=== PATIENT | male | born 1980 | race Caucasian/White ===

== ENCOUNTER 2020-08-19 11:14 | Outpatient (REF) | payer OTHER, SELFPAY ==
[2020-08-26 10:47] LABS: Testosterone, Free 76.6 pg/mL (35.0-155.0); Testosterone, Total 414 ng/dL (250-1100)
== END 2020-08-19 11:15 | disposition home or self-care (01) ==
LOC: HO.MANLDS 11:14
PROVIDERS: PCP Internal Medicine; Visit Provider Internal Medicine
DX: R79.89 Other specified abnormal findings of blood chemistry (principal)
CPT/HCPCS: 84402; 84403

== ENCOUNTER 2021-01-12 19:30 | Emergency (ER) | payer OTHER, SELFPAY ==
[2021-01-12 20:08] VITALS: BP 141/101; PULSE 106; RESP 17; TEMP 37.6; O2SAT 96; BMI 31.4
--- NOTE | 2021-01-12 20:26 | ED_ITS ---
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, the pants were not rip tip but there is a bruise on the right lower leg Related Information Allergies Allergy/AdvReac Type Severity Reaction Status Date / Time azithromycin [From ZITHROMAX] Allergy Mild HIVES Verified 01/12/21 20:37 Review of Systems Review of Systems: Positive for bruising to right lower leg from a bite marga No dizziness no weakness no laceration no difficulty walking or ambulating no numbness or weakness no joint pains no other injury PMFSH Past Medical History Source: nursing notes reviewed Medical History (Updated 01/12/21 @ 21:29 by JANIYA Kruger) Graves disease Hypothyroid Social History Social History Advance Directives: No Physical Exam Vital Signs: Vital Signs: Last Vital Signs Temp 99.6 F 01/12/21 20:08 Pulse 106 H 01/12/21 20:08 Resp 17 01/12/21 20:08 BP 141/101 H 01/12/21 20:08 Pulse Ox 96 01/12/21 20:08 Body Mass Index 31.4 General appearance comfortably a relaxed no acute distress Head normocephalic atraumatic Neck is supple Respiratory no distress Extremities full range of motion x4 Right leg there is a superficial contusion, no skin penetration, pants were intact, very unlikely of any saliva or blood penetrating is skin Neuro no motor or sensory deficit Course Course Course Narrative: Case signed out to physician assistant Blum pending HIV results of source patient christopher in room 12 Patient is advised no need for prophylaxis as no body fluid contact with his skin but depending on source patient results decision will be up to the patient MDM - Medical Clearance Lab Data Result diagrams: 01/12/21 20:36 01/12/21 20:36 Labs: Lab Results 01/12/21 01/12/21 Range/Units 20:36 20:36 WBC 8.1 (4.8-10.8) X10*3/uL RBC 5.25 (4.60-5.80) X10*6/uL Hgb 15.7 (14.0-18.0) g/dl Hct 45.8 (42-52) % MCV 87.2 (80-98) fL MCH 29.9 (27.0-33.0) pg MCHC 34.3 (31.0-36.0) g/dl RDW 13.2 (11.0-16.0) % Plt Count 287 (160-400) X10*3/uL MPV 9.7 (9.4-12.4) fL Immature Gran % (Auto) 0.5 H (0.0-0.4) % Neut % (Auto) 58.3 (45-73) % Lymph % (Auto) 28.8 (20-40) % [place] % (Auto) 8.8 (2-11) % Eos % (Auto) 3.2 (0-4) % Baso % (Auto) 0.4 (0-2) % Lymph # (Auto) 2.3 (1.2-4.9) X10*3/uL [place] # (Auto) 0.7 (0.1-1.2) X10*3/uL Eos # (Auto) 0.3 (0.0-0.4) X10*3/uL Baso # (Auto) 0.0 (0.0-0.2) X10*3/uL Abs Immat Gran (auto) 0.04 H (0.00-0.03) X10*3/uL Absolute Neuts (auto) 4.7 (2.0-8.3) X10*3/uL Absolute Nucleated RBC 0.000 (0.0-0.012) X10*3/uL Nucleated RBC % (auto) 0.0 (0.0-0.2) /100WBC Sodium 141 (135-145) mmol/L Potassium 4.0 (3.3-5.1) mmol/L Chloride 107 (96-108) mmol/L Carbon Dioxide 24 (22-29) mmol/L Anion Gap 14 (12-20) BUN 17 H (9-16) mg/dL Creatinine 1.12 (0.5-1.4) mg/dL Estim Creat Clear Calc 92.2 Estimated GFR > 60 Random Glucose 80 (60-115) mg/dL Calcium 9.6 (8.4-10.2) mg/dL Total Bilirubin 0.9 (0.0-1.0) mg/dL Direct Bilirubin 0.3 (0.0-0.5) mg/dL AST 20 (5-37) U/L ALT 41 H (0-40) U/L Alkaline Phosphatase 83 (39-117) U/L Total Protein 8.5 H (6.5-8.0) g/dL Albumin 5.1 H (3.5-5.0) g/dL Amylase 65 (28-100) U/L Lipase 29 (8-78) U/L Discharge Plan Discharge Clinical Impression: Contusion of leg, right Qualifiers: Encounter type: initial encounter Qualified Code(s): S80.11XA - Contusion of right lower leg, initial encounter Patient Disposition: Home, Self-Care Additional Instructions: Source patient was negative for HIV, follow with work connection for other testing results from the source patient and results of your lab tests done today
--- NOTE | 2021-01-12 20:39 | PC.NURSE ---
TETANUS WAS GIVEN 2018.
[2021-01-12 20:40] LABS: MANUAL DIFF FLAG NO
[2021-01-12 20:42] LABS: Basophils Percent Auto 0.4 % (0-2); Eosinophils Absolute Auto 0.3 X10*3/uL (0.0-0.4); Eosinophils Percent Auto 3.2 % (0-4); Hematocrit 45.8 % (42-52); Hemoglobin 15.7 g/dl (14.0-18.0); Imm Gran Abs Auto 0.04 X10*3/uL (0.00-0.03); Imm Gran Pct Auto 0.5 % (0.0-0.4); Lymphocytes Absolute Auto 2.3 X10*3/uL (1.2-4.9); Lymphocytes Percent Auto 28.8 % (20-40); Mean Corpuscular HGB Conc 34.3 g/dl (31.0-36.0); Mean Corpuscular Hemoglobin 29.9 pg (27.0-33.0); Mean Corpuscular Volume 87.2 fL (80-98); Mean Platelet Volume 9.7 fL (9.4-12.4); Monocytes Absolute Auto 0.7 X10*3/uL (0.1-1.2); Monocytes Percent Auto 8.8 % (2-11); Neutrophils Absolute Auto 4.7 X10*3/uL (2.0-8.3); Neutrophils Percent Auto 58.3 % (45-73); Platelet Count 287 X10*3/uL (160-400); Red Blood Count 5.25 X10*6/uL (4.60-5.80); Red Cell Distribution Width 13.2 % (11.0-16.0); White Blood Count 8.1 X10*3/uL (4.8-10.8)
[2021-01-12 21:15] LABS: Alanine Aminotransferase 41 U/L (0-40); Albumin Level 5.1 g/dL (3.5-5.0); Alkaline Phosphatase 83 U/L (39-117); Amylase 65 U/L (28-100); Anion Gap 14 (12-20); Aspartate Amino Transferase 20 U/L (5-37); Bilirubin Direct 0.3 mg/dL (0.0-0.5); Bilirubin Total 0.9 mg/dL (0.0-1.0); Blood Urea Nitrogen 17 mg/dL (9-16); Calcium 9.6 mg/dL (8.4-10.2); Carbon Dioxide 24 mmol/L (22-29); Chloride 107 mmol/L (96-108); Creatinine Clr Calc Pharmacy 92.2; Estimated Glomerular Filt Rate > 60; Glucose Random 80 mg/dL (60-115); Lipase 29 U/L (8-78); Sodium 141 mmol/L (135-145); Total Protein 8.5 g/dL (6.5-8.0)
[2021-01-12 21:47] LABS: HIV AB/AG Nonreactive (Nonreactive); HIV Num 1 0.06 S/CO (0.00-0.99)
[2021-01-14 08:56] LABS: HBS Num1 25.09 mIU/mL (0-7.99); HBc Num1 0.07 S/CO (0.00-0.79); Hepatitis B Core Antibody Nonreactive (Nonreactive); ~Hepatitis B Surface Antibody REACTIVE (Nonreactive)
[2021-01-14 09:24] LABS: HBsAGNum1 0.17 S/CO (0.00-0.99); Hepatitis B Surface Antigen Negative (Negative)
== END 2021-01-12 22:42 | disposition home or self-care (01) ==
PROVIDERS: Physician Assistant Medical; Emergency Provider Emergency Medicine Emergency Medical Services; PCP Internal Medicine
DX: S80.11XA Contusion of right lower leg, initial encounter (principal); Y04.1XXA Assault by human bite, initial encounter; Y93.89 Activity, other specified; Y92.480 Sidewalk as the place of occurrence of the external cause; Y99.0 Civilian activity done for income or pay
CPT/HCPCS: 36415; 80048; 80076; 82150; 83690; 85025; 86704; 86706; 87340; 87389; 99284

== ENCOUNTER → 2021-01-13 10:46 | Outpatient (BNVA) | payer OTHER, SELFPAY | PROVIDERS: PCP Internal Medicine; Visit Provider Internal Medicine | DX: S80.271A Other superficial bite of right knee, initial encounter (principal); W50.3XXA Accidental bite by another person, initial encounter | CPT/HCPCS: 99203 ==

== ENCOUNTER 2021-06-09 12:13 | Outpatient (REF) | payer OTHER, SELFPAY ==
[2021-06-09 17:58] LABS: Hematocrit 47.5 % (42-52); Hemoglobin 15.7 g/dl (14.0-18.0); Mean Corpuscular HGB Conc 33.1 g/dl (31.0-36.0); Mean Corpuscular Hemoglobin 29.7 pg (27.0-33.0); Mean Corpuscular Volume 89.8 fL (80-98); Mean Platelet Volume 9.7 fL (9.4-12.4); Platelet Count 222 X10*3/uL (160-400); Red Blood Count 5.29 X10*6/uL (4.60-5.80); Red Cell Distribution Width 14.1 % (11.0-16.0); White Blood Count 6.1 X10*3/uL (4.8-10.8)
[2021-06-09 18:20] LABS: Alanine Aminotransferase 44 U/L (0-40); Albumin Level 4.6 g/dL (3.5-5.0); Alkaline Phosphatase 72 U/L (39-117); Anion Gap 16 (12-20); Aspartate Amino Transferase 23 U/L (5-37); Bilirubin Total 1.3 mg/dL (0.0-1.0); Blood Urea Nitrogen 18 mg/dL (9-16); Calcium 9.6 mg/dL (8.4-10.2); Carbon Dioxide 23 mmol/L (22-29); Chloride 106 mmol/L (96-108); Estimated Glomerular Filt Rate > 60; Glucose Fasting 79 mg/dL (60-99); Potassium 3.9 mmol/L (3.3-5.1); Sodium 141 mmol/L (135-145); Total Protein 7.8 g/dL (6.5-8.0)
[2021-06-09 18:42] LABS: Free T4 (Free Thyroxine) 1.54 ng/dL (0.71-1.85); Thyroid Stimulating Hormone 1.07 uIU/mL (0.32-4.0)
[2021-06-10 21:45] LABS: Triiodothyronine T3 Free 2.8 pg/mL (2.3-4.2)
[2021-06-16 14:32] LABS: Testosterone, Total 890 ng/dL (250-1100)
== END 2021-06-09 12:14 | disposition home or self-care (01) ==
LOC: HO.MANLDS 12:13
PROVIDERS: PCP Internal Medicine; Visit Provider Internal Medicine
DX: R79.89 Other specified abnormal findings of blood chemistry (principal); E05.00 Thyrotoxicosis with diffuse goiter without thyrotoxic crisis or storm; R53.83 Other fatigue
CPT/HCPCS: 36415; 80053; 84402; 84403; 84439; 84443; 84481; 85027

== ENCOUNTER 2022-01-08 13:45 | Outpatient (REF) | payer OTHER, SELFPAY ==
[2022-01-08 14:17] LABS: OBS Int Ctl Valid YES; OBS1 POSITIVE (NEGATIVE); OBS2 NEGATIVE (NEGATIVE); OBS3 NEGATIVE (NEGATIVE)
== END 2022-01-08 13:46 | disposition home or self-care (01) ==
LOC: HO.LNP 13:45
PROVIDERS: Visit Provider Internal Medicine
DX: K21.01 Gastro-esophageal reflux disease with esophagitis, with bleeding (principal)
CPT/HCPCS: 82270

== ENCOUNTER 2022-04-16 10:05 | Outpatient (REF) | payer OTHER, SELFPAY ==
[2022-04-16 10:57] LABS: MANUAL DIFF FLAG NO
[2022-04-16 10:59] LABS: Basophils Percent Auto 0.6 % (0-2); Eosinophils Absolute Auto 0.2 X10*3/uL (0.0-0.4); Eosinophils Percent Auto 3.5 % (0-4); Hematocrit 44.7 % (42.0-52.0); Hemoglobin 15.1 g/dl (14.0-18.0); Imm Gran Abs Auto 0.05 X10*3/uL (0.00-0.03); Imm Gran Pct Auto 0.8 % (0.0-0.4); Lymphocytes Absolute Auto 2.1 X10*3/uL (1.2-4.9); Lymphocytes Percent Auto 31.8 % (20-40); Mean Corpuscular HGB Conc 33.8 g/dl (31.0-36.0); Mean Corpuscular Hemoglobin 29.3 pg (27.0-33.0); Mean Corpuscular Volume 86.6 fL (80.0-98.0); Mean Platelet Volume 9.6 fL (9.4-12.4); Monocytes Absolute Auto 0.6 X10*3/uL (0.1-1.2); Monocytes Percent Auto 8.6 % (2-11); Neutrophils Absolute Auto 3.5 x10*3/uL (2.0-8.3); Neutrophils Percent Auto 54.7 % (45-73); Platelet Count 238 X10*3/uL (160-400); Red Blood Count 5.16 X10*6/uL (4.60-5.80); Red Cell Distribution Width 13.5 % (11.0-16.0); White Blood Count 6.5 X10*3/uL (4.8-10.8)
[2022-04-16 12:16] LABS: Alanine Aminotransferase 37 U/L (0-40); Albumin Level 4.6 g/dL (3.5-5.0); Alkaline Phosphatase 77 U/L (39-117); Anion Gap 12 (12-20); Aspartate Amino Transferase 19 U/L (5-37); Blood Urea Nitrogen 18 mg/dL (9-16); Calcium 9.6 mg/dL (8.4-10.2); Carbon Dioxide 27 mmol/L (22-29); Chloride 104 mmol/L (96-108); Cholesterol 253 mg/dL; Estimated Glomerular Filt Rate > 60; Glucose Random 96 mg/dL (60-115); HDL Cholesterol 52 mg/dL; LDL Cholesterol Calculated 177 mg/dl; Potassium 4.8 mmol/L (3.3-5.1); Sodium 138 mmol/L (135-145); Total Protein 7.7 g/dL (6.5-8.0); Triglycerides 122 mg/dL
[2022-04-16 12:18] LABS: Thyroid Stimulating Hormone 0.74 uIU/mL (0.32-4.0); Vitamin D 25-OH Total 30.1 ng/mL (>30)
== END 2022-04-16 10:06 | disposition home or self-care (01) ==
LOC: HO.MANLDS 10:05
PROVIDERS: Visit Provider Internal Medicine
DX: Z00.00 Encounter for general adult medical examination without abnormal findings (principal)
CPT/HCPCS: 36415; 80053; 80061; 82306; 84443; 85025

== ENCOUNTER 2022-10-01 10:56 | Outpatient (REF) | payer OTHER, SELFPAY ==
[2022-10-01 14:08] LABS: MANUAL DIFF FLAG NO
[2022-10-01 14:28] LABS: Basophils Percent Auto 0.5 % (0-2); Eosinophils Absolute Auto 0.2 X10*3/uL (0.0-0.4); Eosinophils Percent Auto 3.1 % (0-4); Hematocrit 43.4 % (42.0-52.0); Hemoglobin 14.7 g/dl (14.0-18.0); Imm Gran Abs Auto 0.02 X10*3/uL (0.00-0.03); Imm Gran Pct Auto 0.4 % (0.0-0.4); Lymphocytes Absolute Auto 1.9 X10*3/uL (1.2-4.9); Lymphocytes Percent Auto 34.2 % (20-40); Mean Corpuscular HGB Conc 33.9 g/dl (31.0-36.0); Mean Corpuscular Hemoglobin 29.8 pg (27.0-33.0); Mean Platelet Volume 10.1 fL (9.4-12.4); Monocytes Absolute Auto 0.5 X10*3/uL (0.1-1.2); Monocytes Percent Auto 8.9 % (2-11); Neutrophils Absolute Auto 2.9 x10*3/uL (2.0-8.3); Neutrophils Percent Auto 52.9 % (45-73); Platelet Count 249 X10*3/uL (160-400); Red Blood Count 4.93 X10*6/uL (4.60-5.80); White Blood Count 5.5 X10*3/uL (4.8-10.8)
[2022-10-01 14:47] LABS: Estimated Average Glucose 100 mg/dL; Hemoglobin A1c % 5.1 %
[2022-10-01 15:08] LABS: Alanine Aminotransferase 35 U/L (0-40); Albumin Level 4.5 g/dL (3.5-5.0); Alkaline Phosphatase 67 U/L (39-117); Anion Gap 11 (12-20); Aspartate Amino Transferase 18 U/L (5-37); Bilirubin Total 1.5 mg/dL (0.0-1.0); Blood Urea Nitrogen 16 mg/dL (9-16); Calcium 9.5 mg/dL (8.4-10.2); Carbon Dioxide 27 mmol/L (22-29); Chloride 105 mmol/L (96-108); Cholesterol 206 mg/dL; Estimated Glomerular Filt Rate > 60; Glucose Fasting 90 mg/dL (60-99); HDL Cholesterol 48 mg/dL; LDL Cholesterol Calculated 142 mg/dl; Potassium 4.3 mmol/L (3.3-5.1); Sodium 139 mmol/L (135-145); Thyroid Stimulating Hormone 0.22 uIU/mL (0.32-4.0); Total Protein 7.3 g/dL (6.5-8.0); Triglycerides 83 mg/dL
[2022-10-08 14:17] LABS: Testosterone, Total 519 ng/dL (250-1100)
== END 2022-10-01 10:57 | disposition home or self-care (01) ==
LOC: HO.MANLDS 10:56
PROVIDERS: Visit Provider Internal Medicine
DX: E03.9 Hypothyroidism, unspecified (principal); R79.89 Other specified abnormal findings of blood chemistry; K21.01 Gastro-esophageal reflux disease with esophagitis, with bleeding; R73.01 Impaired fasting glucose
CPT/HCPCS: 36415; 80053; 80061; 83036; 84403; 84443; 85025

== ENCOUNTER 2023-02-16 10:36 | Outpatient (REF) | payer OTHER, SELFPAY ==
[2023-02-16 14:20] LABS: Estimated Average Glucose 103 mg/dL; Hemoglobin A1c % 5.2 %
[2023-02-16 15:11] LABS: Alanine Aminotransferase 28 U/L (0-40); Albumin Level 4.3 g/dL (3.5-5.0); Alkaline Phosphatase 74 U/L (39-117); Anion Gap 10 (12-20); Aspartate Amino Transferase 17 U/L (5-37); Bilirubin Total 1.4 mg/dL (0.0-1.0); Blood Urea Nitrogen 15 mg/dL (9-16); Calcium 9.2 mg/dL (8.4-10.2); Carbon Dioxide 27 mmol/L (22-29); Chloride 108 mmol/L (96-108); Cholesterol 208 mg/dL; Estimated Glomerular Filt Rate > 60; Glucose Random 83 mg/dL (60-115); HDL Cholesterol 52 mg/dL; LDL Cholesterol Calculated 142 mg/dl; Potassium 4.3 mmol/L (3.3-5.1); Sodium 141 mmol/L (135-145); Total Protein 7.1 g/dL (6.5-8.0); Triglycerides 74 mg/dL
[2023-02-16 15:26] LABS: Thyroid Stimulating Hormone 0.49 uIU/mL (0.32-4.0)
== END 2023-02-16 10:37 | disposition home or self-care (01) ==
LOC: HO.MANLDS 10:36
PROVIDERS: Visit Provider Internal Medicine
DX: E03.9 Hypothyroidism, unspecified (principal); E78.00 Pure hypercholesterolemia, unspecified; R73.01 Impaired fasting glucose
CPT/HCPCS: 36415; 80053; 80061; 83036; 84443

== ENCOUNTER 2023-11-08 12:06 | Outpatient (REF) | payer OTHER, SELFPAY ==
[2023-11-08 14:19] LABS: Estimated Average Glucose 103 mg/dL; Hemoglobin A1c % 5.2 % (<6.0)
[2023-11-08 15:09] LABS: Alanine Aminotransferase 47 U/L (0-40); Albumin Level 4.5 g/dL (3.5-5.0); Alkaline Phosphatase 72 U/L (39-117); Anion Gap 13 (12-20); Aspartate Amino Transferase 25 U/L (5-37); Bilirubin Total 1.2 mg/dL (0.0-1.0); Blood Urea Nitrogen 19 mg/dL (9-16); Calcium 9.5 mg/dL (8.4-10.2); Carbon Dioxide 28 mmol/L (22-29); Chloride 102 mmol/L (96-108); Cholesterol 225 mg/dL (<200); Estimated Glomerular Filt Rate > 60; Glucose Random 86 mg/dL (60-115); HDL Cholesterol 55 mg/dL (>40); LDL Cholesterol Calculated 150 mg/dL (<100); Potassium 3.7 mmol/L (3.3-5.1); Sodium 139 mmol/L (135-145); Total Protein 7.9 g/dL (6.5-8.0); Triglycerides 102 mg/dL (<150)
[2023-11-13 16:18] LABS: Testosterone, Total 584 ng/dL (250-1100)
== END 2023-11-08 12:07 | disposition home or self-care (01) ==
LOC: HO.MANLDS 12:06
PROVIDERS: Visit Provider Internal Medicine
DX: R79.89 Other specified abnormal findings of blood chemistry (principal); E78.00 Pure hypercholesterolemia, unspecified; R73.01 Impaired fasting glucose
CPT/HCPCS: 36415; 80053; 80061; 83036; 84403

== ENCOUNTER 2024-11-06 08:40 | Outpatient (REF) | payer BC, SELFPAY ==
[2024-11-06 09:21] LABS: Estimated Average Glucose 108 mg/dL; Hemoglobin A1C 129.2615 umol/L; Hemoglobin A1c % 5.4 % (<6.0); Total Hemoglobin (HGBA1C) 3670.9797 umol/L
[2024-11-06 10:02] LABS: Alanine Aminotransferase 26 U/L (0-40); Albumin Level 4.5 g/dL (3.5-5.0); Alkaline Phosphatase 72 U/L (39-117); Anion Gap 9 (12-20); Aspartate Amino Transferase 18 U/L (5-37); Bilirubin Total 1.1 mg/dL (0.0-1.0); Blood Urea Nitrogen 18 mg/dL (9-16); Calcium 9.1 mg/dL (8.4-10.2); Carbon Dioxide 27 mmol/L (22-29); Chloride 107 mmol/L (96-108); Cholesterol 199 mg/dL (<200); Estimated Glomerular Filt Rate > 60; Glucose Random 91 mg/dL (60-115); HDL Cholesterol 38 mg/dL (>40); LDL Cholesterol Calculated 140 mg/dL (<100); Potassium 4.1 mmol/L (3.3-5.1); Sodium 139 mmol/L (135-145); Total Protein 7.9 g/dL (6.5-8.0); Triglycerides 107 mg/dL (<150)
[2024-11-06 10:19] LABS: Thyroid Stimulating Hormone 0.15 uIU/mL (0.32-4.0)
[2024-11-11 01:44] LABS: Testosterone, Total 438 ng/dL (250-1100)
== END 2024-11-06 08:41 | disposition home or self-care (01) ==
LOC: HO.LAB 08:40
PROVIDERS: PCP Internal Medicine; Visit Provider Internal Medicine
DX: E03.9 Hypothyroidism, unspecified (principal); R73.01 Impaired fasting glucose; R79.89 Other specified abnormal findings of blood chemistry; E78.00 Pure hypercholesterolemia, unspecified
CPT/HCPCS: 36415; 80053; 80061; 83036; 84403; 84443

== ENCOUNTER 2025-01-02 10:39 | Outpatient (REF) | payer BC, SELFPAY ==
[2025-01-02 14:03] LABS: Thyroid Stimulating Hormone 0.09 uIU/mL (0.32-4.0)
[2025-01-02 14:52] LABS: T4 Thyroxine 12.8 ug/dL (4.5-12.0)
== END 2025-01-02 10:40 | disposition home or self-care (01) ==
LOC: HO.MANLDS 10:39
PROVIDERS: Visit Provider Internal Medicine
DX: E03.9 Hypothyroidism, unspecified (principal)
CPT/HCPCS: 36415; 84436; 84443

== ENCOUNTER 2025-01-30 08:57 | Outpatient (REF) | payer BC, SELFPAY ==
--- OUTSIDE RECORDS SUMMARY | 2025-01-30 09:31 | XMS_ITS | Data Portability ---
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 MUST MEET 2 OUT OF 3 ELEMENTS: PROBLEMS, DATA OR RISK ELEMENT 1: PROBLEMS ADDRESSED 1 OR MORE CHRONIC ILLNESS WITH EXACERBATION OR 2 OR MORE STABLE CHRONIC ILLNESSES OR 1 UNDIAGNOSED NEW PROBLEM OR 1 ACUTE ILLNESS W/SYMPTOMS OR 1 ACUTE COMPLICATED INJURY ELEMENT 2: DATA MUST MEET 1 OF 3 CATEGORIES CATEGORY 1: REVIEW OF PRIOR EXTERNAL NOTES, REVIEW OF RESULTS, ORDERING OF EACH TEST, ASSESSMENT REQUIRING INDEPENDENT HISTORIAN OR CATEGORY 2: INDEPENDENT INTERPRETATION OF TESTS BY ANOTHER PHYSICIAN OR SPECIALIST OR CATEGORY 3: DISCUSSION OF MGT OR TEST INTERPRETATION W/EXTERNAL PHYSICIAN OR SPECIALIST ELEMENT 3: RISK RISK OF COMPLICATIONS AND/OR MORBIDITY OR MORTALITY OF PATIENT MANAGEMENT PROVIDER MUST THOROUGHLY DOCUMENT EACH ELEMENT THAT IS COVERED Not available 04/17/2024 12:29:48 01/02/2025 01/02/2025 Patient presente d for medication refill. Patient tolerating medication well at current dose without adverse effects. Refilled as below. Discussed plan with patient, who expressed understanding. Follow [place]. 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 MUST MEET 2 OUT OF 3 ELEMENTS: PROBLEMS, DATA OR RISK ELEMENT 1: PROBLEMS ADDRESSED 1 OR MORE CHRONIC ILLNESS WITH EXACERBATION OR 2 OR MORE STABLE CHRONIC ILLNESSES OR 1 UNDIAGNOSED NEW PROBLEM OR 1 ACUTE ILLNESS W/SYMPTOMS OR 1 ACUTE COMPLICATED INJURY ELEMENT 2: DATA MUST MEET 1 OF 3 CATEGORIES CATEGORY 1: REVIEW OF PRIOR EXTERNAL NOTES, REVIEW OF RESULTS, ORDERING OF EACH TEST, ASSESSMENT REQUIRING INDEPENDENT HISTORIAN OR CATEGORY 2: INDEPENDENT INTERPRETATION OF TESTS BY ANOTHER PHYSICIAN OR SPECIALIST OR CATEGORY 3: DISCUSSION OF MGT OR TEST INTERPRETATION W/EXTERNAL PHYSICIAN OR SPECIALIST ELEMENT 3: RISK RISK OF COMPLICATIONS AND/OR MORBIDITY OR MORTALITY OF PATIENT MANAGEMENT PROVIDER MUST THOROUGHLY DOCUMENT EACH ELEMENT THAT IS COVERED Not available 01/02/2025 10:18:04 01/28/2025 01/28/2025 [id number] [place] [address] (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 MUST MEET 2 OUT OF 3 ELEMENTS: PROBLEMS, DATA OR RISK ELEMENT 1: PROBLEMS ADDRESSED 1 OR MORE CHRONIC ILLNESS WITH EXACERBATION OR 2 OR MORE STABLE CHRONIC ILLNESSES OR 1 UNDIAGNOSED NEW PROBLEM OR 1 ACUTE ILLNESS W/SYMPTOMS OR 1 ACUTE COMPLICATED INJURY ELEMENT 2: DATA MUST MEET 1 OF 3 CATEGORIES CATEGORY 1: REVIEW OF PRIOR EXTERNAL NOTES, REVIEW OF RESULTS, ORDERING OF EACH TEST, ASSESSMENT REQUIRING INDEPENDENT HISTORIAN OR CATEGORY 2: INDEPENDENT INTERPRETATION OF TESTS BY ANOTHER PHYSICIAN OR SPECIALIST OR CATEGORY 3: DISCUSSION OF MGT OR TEST INTERPRETATION W/EXTERNAL PHYSICIAN OR SPECIALIST ELEMENT 3: RISK RISK OF COMPLICATIONS AND/OR MORBIDITY OR MORTALITY OF PATIENT MANAGEMENT PROVIDER MUST THOROUGHLY DOCUMENT EACH ELEMENT THAT IS COVERED Not available 01/28/2025 09:12:51 Plan of Treatment Reminders Order Date Submit Date Provider Last Modified By Organization Details Last Modified Time Details Appointments ANNUAL EXAM 2025 10:00A M DR QUIROZ Not available Not available Not available Lab TSH + free T4, serum 2024 025 [facility], [address] [place] [address], [id number], 01/28/2025 09:18:18 testoster one, free + total, serum 2024 025 [facility], [address] [place] [address], [address], 01/28/2025 09:18:18 TSH + free T4, serum 2024 025 [facility], [address] [place] [address], 47[address], 01/03/2025 12:57:48 lipid panel, blood 2024 025 [facility], [address] [place] [address], 06809, 11/13/2024 10:37:36 TSH, serum or plasma 2023 024 [facility], [address] [place] [address], [id number], 04/17/2024 12:32:34 hemoglobi n A1c, QN, blood 2023 024 [facility], [address] [place] [address], [id number], 04/17/2024 12:32:34 CMP, serum or plasma 2023 024 [facility], [address] [place] [address], [id number], 04/17/2024 12:32:34 testoster one, total, serum 2023 024 [facility], [address] [place] [address], 05459, 11/12/2024 11:29:25 lipid panel, serum 2023 024 [facility], [address] [place] [address], [address]16, 04/17/2024 12:32:34 HbA1c (hemoglob in A1c), blood 2023 024 [facility], [address] [place] [address], 680[address], 11/09/2023 11:36:28 CMP, serum or plasma 2023 024 [facility], [address] [place] [address], 27[address], 11/09/2023 11:36:28 testoster one, total, serum 2023 024 [facility], [address] [place] [address], [address], 2023 11:15:46 lipid panel, serum 2023 024 [facility], [address] [facility], [place], [address], 11/09/2023 11:36:28 Referral dermatolo gist referral 2024 025 bay Do MD, [address] [place] [id number], [id number], 01/30/2025 08:19:57 Procedures None recorded. Surgeries None recorded. Imaging None recorded. Medication Orders testoster one cypionate 200 mg/mL intramusc ular oil 2024 025 [id number], [address] [facility], [place], [address], 01/02/2025 10:28:08 Patient TargetsNo targets recorded. 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 Problems Name Problem SNOMED Code Status Onset Date Resolution Date Notes Provider Name and Address Organization Details Recorded Time Impaired fasting glycemia 263211539 Active 2018 Keke David null, [facility] 5 12:00:35 Acquired hypothyro idism 124283868 Active 2018 Kekemax tony, [facility] 5 12:00:35 Herpes simplex 93584826 Active 2018 Kekemax tony, [facility] 5 12:00:35 Graves' disease 819827114 Active 2018 Kekemax tony, [facility] 5 12:00:35 Patellar tendoniti s 97712266 Active 2018 Kekemax tony, [facility] 5 12:00:35 Spermatoc germaine 94389475 Active 2018 Kekemax tony, [facility] 5 12:00:35 Acne 81164587 [facility] 12:[facility]35 Fatigue 11193149 Active 2019 Sergio Quiroz, [address] [place] [address], [phone], [facility] 0 11:39:18 Hypotesto steronism 144448777470 4 Active 2019 Sergio Quiroz, [address] [place] [address], [address], [facility] 0 12:06:53 Gastroeso phageal reflux disease 566153614 Active 2021 Sergio Quiroz DO [address] [place] [address], [phone], [place] [facility] 2 10:41:56 Hyperchol esterolem ia 68576486 [facility] 2022 [facility] 14:10:32 Dysplasti c nevus of skin 101272822 Active 2024 Sergio Quiroz DO [address] [place] [address], [address], [facility] 5 13:33:29 Hypothyro idism 32652896 Active 2024 Sergio Apple Elodia, DO [address] [place], [address], [facility] 5 21:46:06 Dysfuncti on of eustachia n tube 12541154 Active 2024 Sergio QuirozDO [address] [place] [address], [address], [facility] 5 09:18:25 Dysfuncti on of eustachia n tube 04317445 Active 2024 Sergio Quiroz, [address] [place] [address], [address], [facility] 5 09:19:13 Problem Notes None recorded. Procedures Surgical History Date Name Laterality Status Provider Name and Address Organization Details Recorded Time Removal of hydrocele completed Leanneizabel Menjivar [facility] 05/01/2019 11:56:12 repair of inguinal hernia completed [facility] 05/01/2019 11:56:30 Imaging Results None recorded. Procedure Notes None recorded. Medical Equipment None Reported. Allergies Allergen ID Allergen Name Allergen Category Reaction Reaction Severity Criticality Documentation Date Start Date Code Code System Note Provider Name and Address Organization Details Recorded Time 3184 azithromy ata medicatio n Not available Not available Not available 05/01/2019 69415 [facility] 9 11:59:49 5626 pantopraz ole medicatio n nausea Not available Not available 01/11/2022 58277 RxNorm Priyanka Samm tony [facility] 2 16:49:43 Medications Name Sig Start Date Stop Date Status Note LastModified by Organization Details LastModified Time cyclobenzap rine 10 mg tablet 06/04 completed Not Available Not Available Not Available levothyroxi ne 175 mcg tablet 08/14 completed Not Available Not Available Not Available neomycin-po lymyxin-hyd rocort 3.5 mg/mL-10,00 0 unit/mL-1 % ear solution 08/14 completed Not Available Not Available Not Available levothyroxi ne 137 mcg tablet TAKE 1 TABLET BY MOUTH EVERY DAY FOR 30 DAYS active Not Available Not Available No t Available Synthroid 150 mcg tablet TAKE 1 TABLET DAILY 01/14 completed Not Available Not Available Not Available prednisone 20 mg tablet 06/04 completed Not Available Not Available Not Available valacyclovi r 500 mg tablet TAKE 1 TABLET DAILY active Not Available Not Available No t Available amoxicillin 875 mg tablet TAKE 1 TABLET BY MOUTH 2 TIMES A DAY UNTIL FINISH 01/02 completed Not Available Not Available Not Available pantoprazol e 40 mg tablet,travis yed release Take 1 tablet twice a day by oral route for 30 days. 01/11 completed Not Available Not Available Not Available lidocaine 5 % topical patch 06/04 completed Not Available Not Available Not Available omeprazole 20 mg capsule,del ayed release TAKE 1 CAPSULE BY MOUTH TWICE A DAY active Not Available Not Available No t Available testosteron e cypionate 200 mg/mL intramuscul ar oil INJECT 0.25 ML EVERY 2 WEEKS BY INTRAMUSC ULAR ROUTE SINGLE USE VIALS active Not Available Not Available No t Available amoxicillin 875 mg-potassiu m clavulanate 125 mg tablet 08/14 completed Not Available Not Available Not Available testosteron e 1 % (50 mg/5 gram) transdermal gel packet APPLY 1 PACKET TOPICALLY DAILY active Not Available Not Available No t Available oxycodone 5 mg tablet 08/14 completed Not Available Not Available Not Available Testim 50 mg/5 gram (1 %) transdermal gel apply topically every day 2023 active Not Available Not Available Not Avai lable multivitami n qd active Not Available Not Available Not Available Vitals Date Recorded Body height Body mass index (BMI) Body weight Heart rate Oxygen saturation Oxygen saturation in Arterial blood by Pulse oximetry Systolic blood pressure Diastolic blood pressure Provider Name and Address Organization Details Last Updated DateTime 4 168.28 cm 30.6 kg/m2 72151.1 4 g 84 /min 97 % 97 % 130 mm[Hg] 80 mm[Hg] Kiara [facility] 4 11:44:58 Date Recorded Body height Body mass index (BMI) Body weight Heart rate Oxygen saturation Oxygen saturation in Arterial blood by Pulse oximetry Systolic blood pressure Diastolic blood pressure Provider Name and Address Organization Details Last Updated DateTime 4 168.28 cm 30.4 kg/m2 67510.5 5 g 76 /min 97 % 97 % 120 mm[Hg] 68 mm[Hg] Kiara Georgemond [facility] 4 12:16:07 Date Recorded Body height Body mass index (BMI) Body weight Systolic blood pressure Diastolic blood pressure Provider Name and Address Organization Details Last Updated DateTime 11/13/2024 168.28 cm 30.4 kg/m2 26927.5 5 g 123 mm[Hg] 80 mm[Hg] Sergio Quiroz, DO [address] [place] [address], [place], [address], [facility] 5 10:04:28 Date Recorded Body height Body mass index (BMI) Body weight Heart rate Oxygen saturation Oxygen saturation in Arterial blood by Pulse oximetry Systolic blood pressure Diastolic blood pressure Provider Name and Address Organization Details Last Updated DateTime 5 168.28 cm 29.8 kg/m2 05408.1 8 g 78 /min 99 % 99 % 120 mm[Hg] 82 mm[Hg] Keke Hernandez [facility] 5 09:47:00 Social History Question Answer Notes LastModified by Organizat ion Details LastModified Time Tobacco Smoking Status [facility] [place] 08/14/2019 09:00:45 What Was The Date Of Your Most Recent Tobacco Screening? 01/02/2025 [email or web address] Information not available 01/02/2025 Do You Or Have You Ever Used Any Other Forms Of Tobacco Or Nicotine? No Information not available 11/13/2024 Sex: Unknown Functional Status None recorded. Mental Status None recorded. Family History Relationship Description Onset Age of this Age Resolved Age Notes LastModified by Organization Details LastModified Time Maternal Grandmother Arthritis legs sbucko Not available 04/16 11:57:36 Maternal Grandfather Diabetes mellitus sbucko Not available 2018 11:57:48 Paternal Grandmother Family history of lupus erythematosu s sbucko Not available 2018 11:59:25 Medical History No medical history recorded. Immunizations Vaccine Type Date Status Note Provider Nam e and Address Organization Details Recorded Time Tdap 01/10/2018 [facility] [place] 05/19/2021 10:11:20 Past Encounters Encounter ID Performer Location Encounter Start Date Encounter Closed Date Diagnosis/Indication Diagnosis SNOMED-CT Code Diagnosis ICD10 Code Diagnosis Note [id number] January VIVAIN [facility] [address], [place] [address] 08/14/2019 08:53:58 08/14/2019 10:51:11 Graves' disease 778409765 E05.00 s/p CANO now on synthroid Fatigue 22187357 R53.83 Vitamin D deficiency 347 43910 E55.9 Tick bite without infection 772312834 W57.XXXA Paresthesia 45668466 R20 .2 b/l hands b/l feet Impaired f asting glycemia 393731162 R73.01 Snoring 67936061 R06.83 Hyperlipid emia screening 828615522 Z13.220 [id number] Sergio Quiroz [facility] [address],[facility] [place] [address] 03/24/2020 11:10:45 03/24/2020 11:48:14 Herpes simplex 40997244 B00.9 Acquired hypothyroidism 924444908 E03.9 will need to get repeat T4 tsh as well as cbc iron levels Fatigue 62682335 R53.83 [id number] Sergio Quiroz [address], [place] [address] 04/02/2020 12:03:22 04/02/2020 13:53:54 Graves' disease 073429738 E05.00 currently stable with ethe acquired hypothyroi d Acquired hypothyroidism 162599905 E03.9 recent lab all wnl and no major issues Fatigue 58374952 R53.83 has low normal testostero ne but has been slowly declining now at 322 will see if we can get a third level below 300 and [id number] Sergio Quiroz [facility] [address], [place] [address] 06/04/2020 11:34:39 06/04/2020 12:21:01 Male hypogonadism 56946189 E29.1 noted persistant drop of his testostero ne over the last 6 months and continued symptoms of low levels we will try to get him started on a gel now even though his level is not at the 250 needed by most insur if not we will keep checking [id number] Sergio Quiroz [facility] [address] [facility] [address] [address] 08/13/2020 11:41:11 08/13/2020 12:12:43 Active or passive immunization 087189102 Z23 done Adult [facility] th examination 482303472 Z00.00 doing well no major issues except we will check his testostero ne level again now that he has been on treatment Hypotestosteronism 68739 97729 104 R79.89 will need to rechk Fatigue 67366780 R53.83 had a low normal testostero ne but has been slowly declining in the past but replacemen t has helped a lot now feels tired and is very compliant with use we [place] need to chk [id number] Sergio Quiroz [facility] [address] [facility] [address] 05/20/2021 09:10:23 05/20/2021 10:00:50 Hypotestosteronism 6374244867 104 R79.89 will need to rechk Graves' disease 91495803 4 E05.00 currently stable with ethe acquired hypothyroi d but given fatigue we need to rechk Herpes simplex 59419973 B00.9 quiet no issuetakin g valacyclov ir Fatigue 29582478 R53.83 had a low normal testostero ne but has been slowly declining in the past but replacemen t has helped a lot now feels tired and is very compliant with use we will need to chk [id number] Sergio Quiroz [facility] [address] [facility] [address] 10/02/2021 08:34:59 10/02/2021 15:08:57 Fatigue 68564000 R53.83 had a low normal testostero ne but has been slowly declining in the past but replacemen t has helped a lot now feels tired and is very compliant with use we will need to chk Acquired hypothyroidism 064835444 E03.9 recent lab all wnl and no major issues Hypotestosteronism 70272 60143 104 R79.89 will need to rechk Impaired f asting glycemia 033698685 R73.01 needs another a1c Sleep apnea 47997623 G47 .30 [id number] Sergio Quiroz [facility] [address],[place] [address] 03/30/2022 10:00:01 03/30/2022 10:50:27 Active or passive immunization 354283822 Z23 done Adult [facility] th examination 453532472 Z00.00 doing well no major issues except we will check his testostero ne level again now that he has been on treatmentw ill be treating chronic gerd with omeprazole [id number] Sergio Quiroz [facility] [address],[place] [address] 10/01/2022 09:59:29 10/01/2022 14:59:36 Acquired hypothyroidism 626797672 E03.9 recent lab all wnl and no major issues Hypotestosteronism 69406 51050 104 R79.89 will need to rechk Gastroesop hageal reflux disease 716835093 K21.01 stable doing the omeprazole daily now Impaired f asting glycemia 810971017 R73.01 needs another a1c [id number] Sergio Quiroz [facility] [address],[place] [address] 01/11/2023 13:46:59 01/11/2023 14:26:03 Acquired hypothyroidism 342298805 E03.9 recent lab all wnl and no major issues Impaired f asting glycemia 280890963 R73.01 needs another a1c Hypotestosteronism 23280 30280 104 R79.89 will need to rechk 1 year Gastroesop hageal reflux disease 111971146 K21.01 stable doing the omeprazole daily now Hypercholesterolemia 136 68840 E78.00 [id number] Sergio Quiroz [facility] [address],[place] [address] 05/06/2023 10:54:40 05/06/2023 13:38:01 Hypotestosteronism 0786539452 104 R79.89 will need to rechk 1 year Impaired f asting glycemia 564591448 R73.01 a1c is excellent Graves' disease 21192807 4 E05.00 currently stable with the acquired hypothyroi d but given fatigue we need to rechk Gastroesop hageal reflux disease 714602215 K21.01 stable doing the omeprazole daily now Hypercholesterolemia 136 19813 E78.00 discussion re results and need for eval further given his fam hx [id number] Sergio Quiroz [facility] [address],[place] [address] 11/08/2023 11:24:04 11/08/2023 12:17:18 Active or passive immunization 156568541 Z23 done Adult [facility] th examination 311916038 Z00.00 doing well no major issues except we will check his testostero ne level again now that he has been on treatmentw ill be treating chronic gerd with omeprazole Hypotestosteronism 86920 27031 104 R79.89 will need to rechk 1 year Hypercholesterolemia 136 98430 E78.00 discussion re results and need for eval further given his fam hx Impaired f asting glycemia 285142435 R73.01 a1c is excellent [id number] Sergio Quiroz [facility] [address],[place] [address] 04/17/2024 12:09:05 04/18/2024 08:15:33 Depression screening 747233510 Z13.31 neg Acquired hypothyroidism 642369323 E03.9 recent lab all wnl and no major issues Impaired f asting glycemia 726726925 R73.01 a1c is excellent Gastroesop hageal reflux disease 523201587 K21.01 stable doing the omeprazole daily now Hypotestosteronism 30928 19408 104 R79.89 will need to rechk 1 year Hypercholesterolemia 136 54228 E78.00 discussion re results and need for eval further given his fam hx [id number] [facility] [address], [facility] [facility] [address] 11/13/2024 09:57:14 11/13/2024 11:20:37 Adult health examination 150664111 Z00.00 doing well no major issues except we will check his testostero ne level again now that he has been on treatmentw ill be treating chronic gerd with omeprazole Active or passive immunization 642007889 Z23 done Screening for cardiovascular system disease 825088630 Z13.6 [id number] Sergio Carpiotom [facility] [address] [address] 01/02/2025 09:39:39 01/02/2025 11:12:05 Renewal of prescription 342077225 Z76.0 done Depression screening 171 145725 Z13.31 neg Acquired hypothyroidism 423105620 E03.9 needs tsh t4 Fatigue 30858656 R53.83 had a low normal testostero ne but has been slowly declining in the past but replacemen t has helped a lot now feels tired and is very compliant with use we will need to chk tsh Gastroesop hageal reflux disease 756579619 K21.01 stable doing the omeprazole daily now Hypercholesterolemia 136 00597 E78.00 discussion re results and need for eval further given his fam hx Hypotestosteronism 74621 02405 104 R79.89 will need to rechk 1 year Impaired f asting glycemia 939148363 R73.01 a1c is excellent Dysplastic nevus of skin 779145655 D22.9 [id number] Sergio Apple Elodia [facility] [address] [facility] [address] 01/28/2025 08:07:42 01/28/2025 10:18:36 Acquired hypothyroidism 226271299 E03.9 needs tsh t4 done Impaired f asting glycemia 835407857 R73.01 a1c is excellent Hypercholesterolemia 136 17437 E78.00 discussion re results and need for eval further given his fam hx Hypotestosteronism 03598 30028 104 R79.89 will be checking another level in a month Dysfunctio n of eustachian tube 42776070 H69.91 will cont to try diff methods now will try afrin and flonase sprays if no better will send to [facility] Health Concerns Section Related Observation LastModified by Organization Detai ls LastModified Time None Recorded Concern Status LastModified by Organization Details LastModified Time None Recorded Advance Directives Directive None Recorded Payers Encounter Date Sequence Insurance Name Policy Number Policy Sandoval Covered Member ID Sandoval Member ID Guarantor Name 11/08/2023 1 [facility] [id number] Jamar Hunt [id number] Jamar Hunt 04/17/2024 1 [place] [facility] [place] [place] [id number] Jamar Hunt [id number] Jamar Hunt 11/13/2024 1 [place] [facility] [place] [facility] [place] [id number] Jamar Hunt [id number] Jamar Hunt 01/02/2025 1 [place] [facility] [place] [facility] [place] [id number] Jamar Hunt [id number] Jamar Hunt 01/28/2025 1 [place] [facility] [place] [place] [facility] [place] [id number] Jamar Hunt [id number] Jamar [facility] Notes Date Note Type Note Provider Name and Address Organization Details Recorded Time 11/08/19 24 text/htm l Annual WellnessReported bypatient.Diet and Nutrition:healthy diet Fracture Risk:no history of fractures; no recent explained fracture; no sudden unexplained fractures; no previous musculoskeletal injuries Physical Activity:exercises on a regular basis; recent increase in physical activity; good physical condition Additional Lifestyle Factors:no tobacco use; no alcohol intake; stopped drinking alcohol Depression Risk:never feels sad, empty, or tearful; no loss of interest in activities; no significant changes in weight; no sleep disturbances or insomnia; no agitation; no loss of energy; no feelings of worthlessness or guilt; no thoughts of suicide; no history of depression; no history of mood disorders Hearing:no loss of hearing Vision:no vision problems 0o Sergio Quiroz, DO [address] [place], [id number], [facility] 11/08/2023 12:07:09 04/17/20 24 text/htm l here for rechk and is doing ok overallno major issueshad recent gi bug and had been feeling only better recentlyonly still having some fatigue Sergio KalyaniYao Quiroz DO [address] [place], [id number], [facility] 04/17/2024 12:35:09 11/13/19 25 text/htm l here for cpe doing ok but now working 3rd shift Sergio KalyaniYao Quiroz DO [address] [place], [id number], [facility] 11/13/2024 10:37:36 01/03/20 25 text/htm l here for rechk and is doing ok overallrelates that the omeprazole is helping rarely has to take a second doseis still fatigued Sergio KalyaniYao Quiroz DO [address] [place], [id number], [facility] 01/02/2025 13:35:04 01/29/20 25 text/htm l Care Management - Acquired HypothyroidismReported bypatient.Medication Education:understands administration; understands effect of concurrent medications; understands missed doses; understands consequences of noncompliance Associated Symptoms:no abnormal weight gain; no tiredness; no dry skin; no cold intolerance; no constipation; no diarrhea; no goiterCare Management - DiabetesReported bypatient.Self Care:seeing eye doctor yearly for dilated eye exam; checking feet regularly; normal range of home blood sugars (in the low 100s); no side effects from medications Associated Symptoms:symptoms are usually well controlled; no fatigue; no dizziness; no excessive sweating; no headaches; no confusion; no increased thirst; no increased appetite; no increased urination; no blurred vision; no numbness of feet; no calluses on feetCare Management - HyperlipidemiaReported bypatient.Control:usually well controlled; improving; at goal Complications:no coronary artery disease; no heart attack; no cardiovascular disease; no pancreatitis; no stroke patient is evaluated via tele/video assessment per patient consent during current pandemic relates that he is doing ok with the testosterone injalso he is having issues with the eustachian tube and that the sudafed onlyhelped a little relates that he is noted be still plugged also he was seen by endocrine and they want him to cont the levothyrox heis doing the inj Sergio Quiroz, DO [address] [facility], [place], [id number], [facility] 01/28/2025 10:03:52
[2025-01-30 14:02] LABS: Free T4 (Free Thyroxine) 1.63 ng/dL (0.71-1.85); Thyroid Stimulating Hormone 0.26 uIU/mL (0.32-4.0)
[2025-02-04 10:59] LABS: Testosterone, Free 25.7 pg/mL (35.0-155.0); Testosterone, Total 167 ng/dL (250-1100)
== END 2025-01-30 08:58 | disposition home or self-care (01) ==
LOC: HO.MANLDS 08:57
PROVIDERS: Visit Provider Internal Medicine
DX: E03.9 Hypothyroidism, unspecified (principal); R79.89 Other specified abnormal findings of blood chemistry
CPT/HCPCS: 36415; 84402; 84403; 84439; 84443